=== PATIENT | male | born 1935 | race Caucasian/White ===

== ENCOUNTER 2022-07-17 10:30 | Inpatient (IN) | payer OTHER, MEDICARE ==
[~2022-07-17] VITALS: Ht 177.8 cm; Wt 78.9 kg
[2022-07-17] VITALS (10 sets, daily range): BP systolic 93–119
--- NOTE | 2022-07-17 10:30 | NUR ---
BROUGHT IN BY [facility], PLACED IN BED #1 AND TRIAGED. REPORT GIVEN TO CHRIS
--- NOTE | 2022-07-17 10:36 | NUR ---
ER at bedside examining patient.
--- NOTE | 2022-07-17 10:37 | NUR ---
pPt BIBA from assisted living C/O fast HR [id number] upon arrival Pt AOX4 VSS Verbally responsive Able to make needs known Pt HR converted to Sinus Rythym upon placement to bed Will continue to monitor
[2022-07-17] MEDS ORDERED: AMIODARONE HCL 150 MG/3ML VIAL IVP ONE (10:45)
[2022-07-17] MEDS ORDERED: PARO-41 PO (10:47)
[2022-07-17] MEDS ORDERED: ALEN10TA25 PO (10:47)
[2022-07-17] MEDS ORDERED: ASPI-1155 PO (10:47)
[2022-07-17] MEDS ORDERED: ALPR0.25 PO (10:47)
[2022-07-17] MEDS ORDERED: LEVO5TAB13 PO (10:47)
[2022-07-17] MEDS ORDERED: CA/D1TAB7 PO (10:47)
[2022-07-17] MEDS ORDERED: LIP10 PO (10:47)
[2022-07-17] MEDS ORDERED: CARV3.1246 PO (10:47)
[2022-07-17] MEDS ORDERED: MULT-1164 PO (10:47)
[2022-07-17] MEDS ORDERED: DOCU250C14 PO (10:47)
--- NOTE | 2022-07-17 10:47 | NUR ---
Medication reconciliation completed with information provided by [facility]. Any prior medication reconciliation on file was reviewed and corrected.
[2022-07-17 10:58] LABS: BASOPHILS # (AUTO) 0.1 K/uL (0.0-0.2); BASOPHILS % (AUTO) 0.6 % (0.0-2.0); EOSINOPHILS # (AUTO) 0.1 K/uL (0.0-0.4); EOSINOPHILS % (AUTO) 0.4 % (0.0-4.0); HEMATOCRIT 40.2 % (36-54); LYMPHOCYTES # (AUTO) 1.8 K/uL (1.0-5.5); LYMPHOCYTES % (AUTO) 12.7 % (20.5-51.5); MEAN CORPUSCULAR HEMOGLOBIN 30 pg (27-31); MEAN CORPUSCULAR HGB CONC 32 % (32-36); MEAN CORPUSCULAR VOLUME 93 fL (79.0-98.0); MONOCYTES # (AUTO) 1.5 K/uL (0.0-1.0); MONOCYTES % (AUTO) 10.5 % (1.7-9.3); NEUTROPHILS # (AUTO) 10.8 K/uL (1.8-7.7); NEUTROPHILS % (AUTO) 75.8 % (40.0-70.0); PLATELET COUNT (AUTO) 177 K/uL (130-430); RED CELL DISTRIBUTION WIDTH 14.5 % (9.0-15.0); WHITE BLOOD COUNT (AUTO) 14.2 K/uL (4.8-10.8)
[2022-07-17] MEDS ORDERED: MORPHINE 4 MG INJ. 4 MG/ML VIAL IVP ONE (11:00)
--- NOTE | 2022-07-17 11:24 | NUR ---
HR @222 BP @74/41 notified with order to prepare pt for cardioversion and amiodarone admin Meds given administered 2 rounds of shocks HR @88 @ this time
[2022-07-17 11:29] LABS: INR 1.2 (0.80-1.20); PROTHROMBIN TIME 12.1 SECS (9.5-12.5)
--- NOTE | 2022-07-17 11:32 | NUR ---
pt placed on 4L O2 NC per MD
[2022-07-17 11:35] LABS: ANION GAP 9 (5-15); CALCIUM 8.4 mg/dL (8.4-11.0); CHLORIDE 106 mmol/L (98-107); CREATININE 1.49 mg/dL (0.55-1.30); GLUCOSE 147 mg/dL (70-99); UREA NITROGEN, BLOOD 25 mg/dL (8-21)
[2022-07-17 11:43] LABS: ALANINE AMINOTRANSFERASE 210 U/L (12-78); ALBUMIN 3.2 g/dL (3.4-4.8); ASPARTATE AMINOTRANSFERASE 32 U/L (10-37); TOTAL BILIRUBIN 1.4 mg/dL (0.0-1.0)
--- NOTE | 2022-07-17 11:50 | NUR ---
Edilia from lab called for critical Troponin 662 MD Bai made aware
--- NOTE | 2022-07-17 11:52 | NUR ---
Admit bed requested Patient will be admitted to care of Admitted to unit. Tele Diagnosis Cardiac Arrhythmia Inpatient (Yes or No) Yes Observation (Yes or No) No Orientation concerns or request close to nursing station (Yes or No) No Covid Status Pending On vent or bipap No Isolation requirements No Needs a sitter No From Home (Yes or if No enter name of facility) No Requires Dialysis (Yes or No) No Med Rec Completed (Yes of No) Yes
--- NOTE | 2022-07-17 12:10 | NUR ---
COVID and MRSA specimens colected
[2022-07-17] MEDS: NACL 0.9% 1,000 ML IV SCH (12:31)
[2022-07-17] MEDS ORDERED: MAGNESIUM SULFATE 50 ML IV PRN (13:30)
[2022-07-17] MEDS ORDERED: ACETAMINOPHEN 325 MG TABLET PO PRN ×2 (13:30→14:00)
[2022-07-17] MEDS ORDERED: ONDANSETRON HCL 4 MG/2 ML VIAL IVP PRN (13:30)
[2022-07-17] MEDS ORDERED: MORPHINE 2 MG/ML INJ. SYRINGE IVP PRN (13:30)
[2022-07-17] MEDS ORDERED: MUPIROCIN 2% TOPICAL OINTMENT 22 GM NS PRN (13:30)
[2022-07-17] MEDS ORDERED: DOCUSATE SODIUM 100 MG CAPSULE PO PRN (13:30)
[2022-07-17] MEDS ORDERED: POTASSIUM CHLORIDE 20 MEQ TAB.PRT.SR PO PRN (13:30)
[2022-07-17] MEDS ORDERED: NALOXONE HCL 0.4 MG/ML AMP (NARCAN) IVP PRN ×2 (13:30)
--- NOTE | 2022-07-17 14:21 | NUR ---
Dr Kent notified of elevated troponin Per MD, notify Dr. Damon. Hot Room Attendant Dr. Damon notified
--- NOTE | 2022-07-17 14:22 | NUR ---
MD BURGOS PAGED FOR MD RADFORD
--- NOTE | 2022-07-17 14:27 | NUR ---
Per MD, admit pt to ICU and start amiodarine per protocol
[2022-07-17] MEDS ORDERED: AMIODARONE HCL 450 MG in D5W 241 ML IV SCH (14:30)
[2022-07-17] MEDS ORDERED: AMIODARONE HCL 450 MG/9 ML VIAL IV ONE ×2 (14:52→23:57)
--- NOTE | 2022-07-17 15:10 | NUR ---
Amidarone drip started per MD's order 33.3ml/hr @1346
--- NOTE | 2022-07-17 15:19 | NUR ---
Gave report to Pinky espinal continous of care AOX4 VSS Verbally responsive Able to make needs known
[2022-07-17 15:26] LABS: THYROID STIMULATING HORMONE 4.23 uIu/mL (0.36-3.74)
--- NOTE | 2022-07-17 15:58 | NUR ---
Patient will be admitted to care of icu. Admitted to ICU unit. Will go to room ICU 5. Complete and up to date summary report printed. SBAR report to be given at bedside with opportunity for questions.
--- NOTE | 2022-07-17 15:58 | NUR ---
FAMILY NOTIFIED OF PTS MOVE TO ICU, PHONE NUMBER GIVEN AND ALL QUESTIONS ANSWERED.
--- NOTE | 2022-07-17 16:15 | NUR ---
RN NOTES ADMITTED FROM ER, CAME IN FOR CARDIAC ARRYTHMIA. ADMISSION CARE DONE, PATIENT AWAKE AND ALERT, NOT IN ACUTE DISTRESS, O2 AT 4L/MIN VIA NC, SPO2 GOOD. SINUS TACHYCARDIA ON THE MONITOR. INITIAL VITAL SIGN CHECKED AND RECORDED. WITH AMIODARONE DRIP GOING ON AT 1MG/MIN. PATIENT REPOSITIONED FOR COMFORT.
--- NOTE | 2022-07-17 18:00 | NUR ---
RN NOTES FAMILY HERE TO SEE PATIENT, UPDATED ON PATIENT PRESENT CONDITION.
--- NOTE | 2022-07-17 20:00 | NUR ---
RECEIVED AWAKE, ALERT, FOLLOWS SIMPLE COMMANDS, VERBALLY RESPONSIVE. ON 4LPM O2 PER NC, SATURATION WDL. NO SOB NOTED. MAID HOUSEKEEPER SHOWNNST, DENIES CHEST PAIN. AMNIODARONE DRIP IS INFUSING ON THE LEFT WRIST , GA # 20 AT 1 MG/MIN. NS IS ALSO INFUSING AT 80 ML/HR. NO EDEMA NOTED. ABDOMEN SOFT AND NON-DISTENDED. SKIN INTACT.
[2022-07-17] MEDS: CARVEDILOL 3.125 MG TABLET (COREG) PO SCH (20:32)
[2022-07-17] MEDS ORDERED: ATORVASTATIN 10 MG TABLET PO SCH (21:00)
[2022-07-17] MEDS: HEPARIN SODIUM,PORCINE 5,000 UNITS/ML VIAL SUBCUT SCH (21:00)
[2022-07-17] MEDS: ALPRAZolam 0.25 MG TABLET PO SCH (21:00)
[2022-07-17] MEDS ORDERED: METOPROLOL SUCCINATE 25 MG TAB.SR.24H (TOPROL XL) PO ONE (23:09)
[2022-07-17] MEDS: METOPROLOL SUCCINATE 25 MG TAB.SR.24H (TOPROL XL) PO SCH (23:11)
[2022-07-18] VITALS (24 sets, daily range): BP systolic 93–183
[2022-07-18] MEDS: LORazepam 2 MG/ML VIAL IVP PRN ×2 (00:19→14:19)
--- NOTE | 2022-07-18 00:20 | NUR ---
PATIENT IS RESTLESS, PULLING LEADS OFF AND NASAL CANNULA. ATIVAN 1 MG IVP GIVEN. WILL CONTINUE TO MONITOR.
[2022-07-18] MEDS: NACL 0.9% 1,000 ML IV SCH ×3 (00:45→18:24)
[2022-07-18 06:52] LABS: BASOPHILS % (AUTO) 0.4 % (0.0-2.0); EOSINOPHILS # (AUTO) 0.1 K/uL (0.0-0.4); EOSINOPHILS % (AUTO) 0.6 % (0.0-4.0); HEMATOCRIT 35.6 % (36-54); HEMOGLOBIN 11.8 g/dL (14.0-18.0); LYMPHOCYTES # (AUTO) 1.2 K/uL (1.0-5.5); LYMPHOCYTES % (AUTO) 9.5 % (20.5-51.5); MEAN CORPUSCULAR HEMOGLOBIN 31 pg (27-31); MEAN CORPUSCULAR HGB CONC 33 % (32-36); MEAN CORPUSCULAR VOLUME 94 fL (79.0-98.0); MONOCYTES # (AUTO) 1.2 K/uL (0.0-1.0); MONOCYTES % (AUTO) 9.5 % (1.7-9.3); NEUTROPHILS # (AUTO) 10.1 K/uL (1.8-7.7); PLATELET COUNT (AUTO) 137 K/uL (130-430); RED BLOOD CELL COUNT(AUTO) 3.81 MIL/uL (4.2-6.2); RED CELL DISTRIBUTION WIDTH 14.4 % (9.0-15.0); WHITE BLOOD COUNT (AUTO) 12.6 K/uL (4.8-10.8)
[2022-07-18 07:09] LABS: ANION GAP 6 (5-15); CALCIUM 8.2 mg/dL (8.4-11.0); CHLORIDE 106 mmol/L (98-107); CREATININE 1.34 mg/dL (0.55-1.30); GLUCOSE 100 mg/dL (70-99); UREA NITROGEN, BLOOD 27 mg/dL (8-21)
--- NOTE | 2022-07-18 07:15 | NUR ---
Opening notes: Received report from endorsing film processing shift supervisor SPARKLE Sawant for continuity of care, pt lying in bed with ivf left wrist 20g of NS at 80ml/hr. pt on Amiodorin drip @ 0.5mg/min. Pt on 2l nasal cannula saturating at 97%, pt temp 97.5F, no sign of acute distress noted at this time will continue to monitor.
[2022-07-18] MEDS: ASPIRIN 81 MG TAB.CHEW PO SCH (09:01)
[2022-07-18] MEDS: PARoxetine HCL 20 MG TABLET PO SCH (09:01)
[2022-07-18] MEDS: CARVEDILOL 3.125 MG TABLET (COREG) PO SCH (09:05)
[2022-07-18] MEDS: HEPARIN SODIUM,PORCINE 5,000 UNITS/ML VIAL SUBCUT SCH ×2 (09:07→19:44)
--- NOTE | 2022-07-18 09:30 | NUR ---
Informed Vivienne of critical lab value of troponin 2174.
--- NOTE | 2022-07-18 09:41 | NUR ---
provided oral care, skin care, and bedside care rendered.
[2022-07-18] MEDS ORDERED: HEPARIN 25,000 UNITS/D5W 250ML 250 ML IV PRN (09:45)
[2022-07-18] MEDS ORDERED: ATORVASTATIN 20 MG TABLET PO ONE (10:00)
[2022-07-18] MEDS ORDERED: METOPROLOL SUCCINATE 50 MG TAB.SR.24H (TOPROL XL) PO ONE (10:00)
--- NOTE | 2022-07-18 11:33 | NUR ---
urine specimen is collected for urinalysis profile, sent to lab at 11:33.
[2022-07-18] MEDS ORDERED: ISOSORBIDE MONONITRATE 30 MG TAB.ER.24H PO ONE (12:00)
[2022-07-18 12:05] LABS: BILIRUBIN,URINE 1+ (NEGATIVE); BLOOD, URINE NEGATIVE (NEGATIVE); CLARITY/URINE CLEAR (CLEAR); COLOR,URINE YELLOW (YELLOW); GLUCOSE,URINE NEGATIVE (NEGATIVE); KETONES,URINE NEGATIVE (NEGATIVE); LEUKOCYTE ESTERASE ,URINE NEGATIVE (NEGATIVE); NITRITE, URINE POSITIVE (NEGATIVE); PROTEIN URINE TRACE (NEGATIVE); UROBILINOGEN,URINE 0.2 (0.2-1.0)
[2022-07-18 12:41] LABS: BACTERIA,URINE FEW /HPF (None Seen); MUCUS,URINE 1+ /LPF (None Seen); RBC,URINE 0-3 /HPF (0-3); WBC,URINE 0-3 /HPF (0-3)
--- NOTE | 2022-07-18 14:19 | NUR ---
pt becoming agitated, trying to pull his iv, removing his bp cuff, trying to take his gown, and the electro leads from his chest. pt was giving 1mg IVP.
--- NOTE | 2022-07-18 15:15 | NUR ---
Amiodorone stopped at 1515, Vivienne FINN at bed side order.
[2022-07-18] MEDS ORDERED: FUROSEMIDE 20 MG/2 ML VIAL IVP ONE (15:30)
--- NOTE | 2022-07-18 18:03 | NUR ---
ST EVALUATION COMPLETED. ST TX NOT INDICATED AT THIS TIME. RECOMMEND PO DIET OF PUREE/THIN LIQUID. 1:1 FEEDER AND FULL ASPIRATION PRECAUTIONS.
--- NOTE | 2022-07-18 19:30 | NUR ---
RECEIVED PATIENT AWAKE, NEEDS DETAILED EXPLANATIONS FOR THE PATIENT TO UNDERSTAND. FAMILY ARE HERE VISITING AND UPDATED. PATIENT HAS RESTRAINTS ON, EXPLAINED TO FAMILY THE REASON OF RESTRAINTS APPLICATION. ON 4L O2 PER NC, SATURATION WDL. FORGING DIE FINISHER IS SHOWING NSR, DENIES CHEST PAIN. BP WNL. IVF OF NS IS INFUSING AT 80 ML/HR. HEPARIN DRIP AT 42,000 UNITS/HR. WILL MONITOR PTT ORDERED AND WILL TITRATE ACCORDINGLY. PATIENT IS AFEBRILE AND INCONTINENT .
[2022-07-18] MEDS: ALPRAZolam 0.25 MG TABLET PO SCH (21:02)
[2022-07-18] MEDS: ZOLPIDEM TARTRATE 5 MG TABLET PO PRN (21:03)
[2022-07-18] MEDS: METOPROLOL SUCCINATE 25 MG TAB.SR.24H (TOPROL XL) PO SCH (23:00)
[2022-07-18] MEDS: MORPHINE 2 MG/ML INJ. SYRINGE IVP PRN (23:22)
--- NOTE | 2022-07-18 23:28 | NUR ---
LABORATORY CALLED, SAID THERE IS NO COAGULATION RESULT ON THE PTT READING, NO NUMERIC RESULT. REQUESTING THEM TO REDRAW BECAUSE PATIENT IS ON HEPARIN DRIP.
[2022-07-19] VITALS (21 sets, daily range): BP systolic 105–170
--- NOTE | 2022-07-19 | NUR ---
SPOKE WITH THE LAB, INFORMED THEM TOO REDRAW PTT AT 0100AM. HEPARIN DRIP TURNED OFF RIGHT NOWPER CHARGE NURSE. WILL WAIT WHEN PTT IS OBTAINED.
--- NOTE | 2022-07-19 02:21 | NUR ---
PTT RESULT IS NOT AVAILABLE, NO COAGULATION NOR NUMERIC NUMBER RESULT. CHARGE NURSE RECOMMENDING FOR A REDRAW, NOTIFIED LAB. HEPARIN REMAINED OFF .
[2022-07-19] MEDS: LORazepam 2 MG/ML VIAL IVP PRN (02:30)
[2022-07-19] MEDS: MORPHINE 2 MG/ML INJ. SYRINGE IVP PRN (03:36)
--- NOTE | 2022-07-19 04:40 | NUR ---
PTT IS STILL NOT RESULTED. LAB MADE A NOTE THAT THERE IS STILL NO COAGULATION FROM THE REDRAWS, NOTIFIED DR. Anahi SALCEDO, ORDERED TO HOLD THE HEPARIN AND SWITCH TO LOVENOX 80MG SQ BID.
[2022-07-19 06:47] LABS: BASOPHILS % (AUTO) 0.3 % (0.0-2.0); EOSINOPHILS # (AUTO) 0.1 K/uL (0.0-0.4); EOSINOPHILS % (AUTO) 0.6 % (0.0-4.0); HEMATOCRIT 33.5 % (36-54); HEMOGLOBIN 11.3 g/dL (14.0-18.0); LYMPHOCYTES # (AUTO) 1.2 K/uL (1.0-5.5); LYMPHOCYTES % (AUTO) 11.2 % (20.5-51.5); MEAN CORPUSCULAR HEMOGLOBIN 31 pg (27-31); MEAN CORPUSCULAR HGB CONC 34 % (32-36); MEAN CORPUSCULAR VOLUME 92 fL (79.0-98.0); MONOCYTES % (AUTO) 9.4 % (1.7-9.3); NEUTROPHILS # (AUTO) 8.1 K/uL (1.8-7.7); NEUTROPHILS % (AUTO) 78.5 % (40.0-70.0); PLATELET COUNT (AUTO) 119 K/uL (130-430); RED BLOOD CELL COUNT(AUTO) 3.64 MIL/uL (4.2-6.2); RED CELL DISTRIBUTION WIDTH 14.1 % (9.0-15.0)
[2022-07-19 06:58] LABS: ANION GAP 12 (5-15); CALCIUM 7.4 mg/dL (8.4-11.0); CHLORIDE 107 mmol/L (98-107); CREATININE 1.16 mg/dL (0.55-1.30); GLUCOSE 94 mg/dL (70-99); UREA NITROGEN, BLOOD 30 mg/dL (8-21)
--- NOTE | 2022-07-19 07:44 | NUR ---
MEDS CALLED PHARMACY AND SPOKE TO [facility]. MADE HER AWARE THAT PT IS OFF THE HEPARIN DRIP. PTT ABOVE 150. PLATELET COUNT PENDING, WILL WAIT FOR THE RESULT.
[2022-07-19 07:52] LABS: WHITE BLOOD COUNT (AUTO) 10.3 K/uL (4.8-10.8)
--- NOTE | 2022-07-19 08:00 | NUR ---
AM ASSESSMENT APPROACHED PT, HIS EYES CLOSED, REPLIED SHORT WORDS TO STAFF, ON IVF NS AT 80 ML PER HR, IV SITE CLEAR AND INTACT, ABDOMEN SOFT NON DISTENDED, REPOSITIONED IN BED, CONTINUE TO MONITOR.
[2022-07-19] MEDS: ASPIRIN 81 MG TAB.CHEW PO SCH (09:00)
[2022-07-19] MEDS: ATORVASTATIN 20 MG TABLET PO SCH (09:00)
[2022-07-19] MEDS: PARoxetine HCL 20 MG TABLET PO SCH (09:00)
[2022-07-19] MEDS: ENOXAPARIN SODIUM 80 MG/0.8 ML SYRINGE SUBCUT SCH ×3 (09:00→20:23)
[2022-07-19] MEDS: METOPROLOL SUCCINATE 25 MG TAB.SR.24H (TOPROL XL) PO SCH (09:00)
[2022-07-19] MEDS: METOPROLOL SUCCINATE 50 MG TAB.SR.24H (TOPROL XL) PO SCH (09:00)
--- NOTE | 2022-07-19 09:59 | NUR ---
MEDS HELD LOVENOX SQ, PTT ABOVE 150, PLATELET COUNT 119.
--- NOTE | 2022-07-19 11:00 | NUR ---
LOC PT REMAINS DROWSY, TURNED TO HIS SIDE, WILL CONTINUE TO MONITOR.
--- NOTE | 2022-07-19 11:30 | NUR ---
MD PT'S MARY JO AND THEIR SON AT BEDSIDE, DR Bindu SALCEDO STEPPED IN AND EXAMINED THE PATIENT. THE FAMILY RAISED QUESTIONS, PLAN OF CARE AND MD ANSWERED.
--- NOTE | 2022-07-19 19:25 | NUR ---
PM SHIFT ASSESSMENT Patient is awake but very confused. Patient is on room air. SR on monitor. Skin warm and intact. IVF infusing. Bilateral wrist restraints in place, no skin issues noted. Safety precautions in place, call light within reach. Will continue to monitor.
[2022-07-19] MEDS: NACL 0.9% 1,000 ML IV SCH (20:10)
--- NOTE | 2022-07-19 21:15 | NUR ---
Patient is extremely confused, trying to pull lines and get out of bed. Patient reoriented but unable to follow simple commands. Will attempt to reorient again later. Safety precautions in place.
[2022-07-20] VITALS (24 sets, daily range): BP systolic 90–166
[2022-07-20] MEDS: MORPHINE 2 MG/ML INJ. SYRINGE IVP PRN (03:23)
--- NOTE | 2022-07-20 07:15 | NUR ---
ENDORSEMENT Patient care endorsed to tray VILLAGRAN. All needs met.
[2022-07-20 07:40] LABS: INR 1.2 (0.80-1.20); PROTHROMBIN TIME 12.2 SECS (9.5-12.5)
[2022-07-20 08:03] LABS: ANION GAP 9 (5-15); CALCIUM 7.9 mg/dL (8.4-11.0); CHLORIDE 108 mmol/L (98-107); CREATININE 0.79 mg/dL (0.55-1.30); GLUCOSE 78 mg/dL (70-99); UREA NITROGEN, BLOOD 24 mg/dL (8-21)
[2022-07-20 08:17] LABS: BASOPHILS % (AUTO) 0.3 % (0.0-2.0); EOSINOPHILS % (AUTO) 0.4 % (0.0-4.0); HEMATOCRIT 34.1 % (36-54); HEMOGLOBIN 11.4 g/dL (14.0-18.0); LYMPHOCYTES # (AUTO) 0.7 K/uL (1.0-5.5); LYMPHOCYTES % (AUTO) 8.7 % (20.5-51.5); MEAN CORPUSCULAR HEMOGLOBIN 31 pg (27-31); MEAN CORPUSCULAR HGB CONC 33 % (32-36); MEAN CORPUSCULAR VOLUME 92 fL (79.0-98.0); MONOCYTES # (AUTO) 0.8 K/uL (0.0-1.0); MONOCYTES % (AUTO) 8.8 % (1.7-9.3); NEUTROPHILS # (AUTO) 7.1 K/uL (1.8-7.7); NEUTROPHILS % (AUTO) 81.8 % (40.0-70.0); PLATELET COUNT (AUTO) 119 K/uL (130-430); RED BLOOD CELL COUNT(AUTO) 3.69 MIL/uL (4.2-6.2); RED CELL DISTRIBUTION WIDTH 14.4 % (9.0-15.0); WHITE BLOOD COUNT (AUTO) 8.6 K/uL (4.8-10.8)
[2022-07-20] MEDS: ENOXAPARIN SODIUM 80 MG/0.8 ML SYRINGE SUBCUT SCH ×3 (09:00→21:30)
[2022-07-20] MEDS: PARoxetine HCL 20 MG TABLET PO SCH ×2 (09:00→10:54)
[2022-07-20] MEDS: ATORVASTATIN 20 MG TABLET PO SCH ×2 (09:00→10:55)
[2022-07-20] MEDS: METOPROLOL SUCCINATE 50 MG TAB.SR.24H (TOPROL XL) PO SCH ×2 (09:00→14:30)
[2022-07-20] MEDS: ASPIRIN 81 MG TAB.CHEW PO SCH ×2 (09:00→10:53)
--- NOTE | 2022-07-20 10:25 | NUR ---
PRINCIPAL DEVELOPER DR Bindu SALCEDO WAS PAGED TO NOTIFY ABOUT V TACH EPISODE. HE CAME IN AND SAW THE EKG TRACE. HE MARIA R TO SEE THE PATIENT. HE ALSO MET THE FAMILY, AND SON.
[2022-07-20] MEDS: NACL 0.9% 1,000 ML IV SCH ×2 (11:06→21:31)
--- NOTE | 2022-07-20 14:10 | NUR ---
ARRHYTHMIA PT TALKING, CONFUSED CONVERSATION, CARDIAC RHYTHM SVT, HEART RATE 147, BREATHING REGULAR, SET UP EKG MACHINE.
--- NOTE | 2022-07-20 14:12 | NUR ---
Orders left by Dr. Damon and bedside RN made aware.
--- NOTE | 2022-07-20 14:12 | NUR ---
SVT noted on the monitor, rate 140-150. 12 lead EKG done and shows wide complex tachycardia. Call out to Dr. Damon.
[2022-07-20] MEDS ORDERED: METOPROLOL SUCCINATE 50 MG TAB.SR.24H (TOPROL XL) PO ONE (14:30)
--- NOTE | 2022-07-20 14:31 | NUR ---
MEDS 100 MG TOPROL XL GIVEN ORDERED BY Anahi LORENZO
--- NOTE | 2022-07-20 16:45 | NUR ---
MIDLINE NEW IV ACCESS IN THE LEFT UPPER ARM. DRESSING INTACT, BLOOD OOZING TO THE SIDE NOTED. PICC NURSE CAME BACK AND RE DRESSED, APPLIED PRESSURE DRESSING TO SITE.
--- NOTE | 2022-07-20 19:30 | NUR ---
PM SHIFT ASSESSMENT Patient is awake but very confused. Patient is NC, RR even and unlabored. SR on monitor. Skin warm and intact. IVF infusing. Bilateral wrist restraints in place, no skin issues noted. Safety precautions in place, call light within reach. Will continue to monitor.
[2022-07-20] MEDS: ZOLPIDEM TARTRATE 5 MG TABLET PO PRN (21:30)
[2022-07-21] VITALS (24 sets, daily range): BP systolic 127–202
[2022-07-21] MEDS: NACL 0.9% 1,000 ML IV SCH (03:37)
[2022-07-21 07:04] LABS: BASOPHILS # (AUTO) 0.1 K/uL (0.0-0.2); BASOPHILS % (AUTO) 0.9 % (0.0-2.0); EOSINOPHILS # (AUTO) 0.1 K/uL (0.0-0.4); HEMATOCRIT 32.9 % (36-54); HEMOGLOBIN 11.4 g/dL (14.0-18.0); LYMPHOCYTES # (AUTO) 1.2 K/uL (1.0-5.5); LYMPHOCYTES % (AUTO) 13.5 % (20.5-51.5); MEAN CORPUSCULAR HEMOGLOBIN 32 pg (27-31); MEAN CORPUSCULAR HGB CONC 35 % (32-36); MEAN CORPUSCULAR VOLUME 92 fL (79.0-98.0); MONOCYTES # (AUTO) 0.9 K/uL (0.0-1.0); MONOCYTES % (AUTO) 10.6 % (1.7-9.3); NEUTROPHILS # (AUTO) 6.4 K/uL (1.8-7.7); PLATELET COUNT (AUTO) 155 K/uL (130-430); RED BLOOD CELL COUNT(AUTO) 3.58 MIL/uL (4.2-6.2); RED CELL DISTRIBUTION WIDTH 14.3 % (9.0-15.0); WHITE BLOOD COUNT (AUTO) 8.7 K/uL (4.8-10.8)
--- NOTE | 2022-07-21 07:06 | NUR ---
ENDORSEMENT PATIENT CARE ENDORSED TO SANDRINE VILLAGRAN.
[2022-07-21 07:15] LABS: ANION GAP 7 (5-15); CALCIUM 7.5 mg/dL (8.4-11.0); CHLORIDE 109 mmol/L (98-107); CREATININE 0.94 mg/dL (0.55-1.30); GLUCOSE 90 mg/dL (70-99); UREA NITROGEN, BLOOD 19 mg/dL (8-21)
--- NOTE | 2022-07-21 07:15 | NUR ---
Opening Received report on pt. Pt awake, confused, in no signs of pain or distress on 1L O2 nasal cannula. Pt with bilateral soft wrist restraints for safety and unable to follow instructions. Pt receiving IVF to midline. Pt is incontinent.
[2022-07-21] MEDS: ASPIRIN 81 MG TAB.CHEW PO SCH (08:54)
[2022-07-21] MEDS: PARoxetine HCL 20 MG TABLET PO SCH (08:54)
[2022-07-21] MEDS: METOPROLOL SUCCINATE 50 MG TAB.SR.24H (TOPROL XL) PO SCH (08:54)
[2022-07-21] MEDS: ENOXAPARIN SODIUM 80 MG/0.8 ML SYRINGE SUBCUT SCH ×2 (08:55→21:08)
[2022-07-21] MEDS: ATORVASTATIN 20 MG TABLET PO SCH (08:55)
[2022-07-21] MEDS ORDERED: SODIUM ZIRCONIUM CYCLOSILICATE 10 GM POWD.PACK PO ONE (09:00)
--- NOTE | 2022-07-21 09:00 | NUR ---
Pt able to tolerate eating breakfast, had 50% of meal. Tolerated well.
[2022-07-21] MEDS: hydrALAZINE HCL 20 MG/ML VIAL IVP PRN (09:02)
[2022-07-21] MEDS ORDERED: SACUBITRIL/VALSARTAN 24 MG-26 MG 1 TABLET PO ONE (09:45)
--- NOTE | 2022-07-21 11:30 | NUR ---
Transfer of care Pt in no signs of pain or distress, remains on 1L O2 via nasal cannula. Bilateral soft wrist restraints in place for safety. Endorsed plan of care to Annmarie VILLAGRAN.
--- NOTE | 2022-07-21 19:15 | NUR ---
Opening notes Received report from endorsing morning shift RN Annmarie for continuity of care. Patient is lying in bed confused. Patient's vital signs blood pressure 143/77, heart rate 66, respirations 15, SPO2 99% on 1 L NC. Bilateral soft restraints is in place. Bed is locked and in lowest position, call light button within reach, fall and safety precautions is in place.
[2022-07-21] MEDS: SACUBITRIL/VALSARTAN 24 MG-26 MG 1 TABLET PO SCH (21:08)
[2022-07-22] VITALS (24 sets, daily range): BP systolic 101–187
[2022-07-22] MEDS: ZOLPIDEM TARTRATE 5 MG TABLET PO PRN ×2 (02:32→20:29)
[2022-07-22] MEDS: hydrALAZINE HCL 20 MG/ML VIAL IVP PRN ×2 (02:32→16:07)
[2022-07-22 06:55] LABS: BASOPHILS # (AUTO) 0.1 K/uL (0.0-0.2); BASOPHILS % (AUTO) 0.7 % (0.0-2.0); EOSINOPHILS % (AUTO) 0.6 % (0.0-4.0); HEMOGLOBIN 11.7 g/dL (14.0-18.0); LYMPHOCYTES # (AUTO) 0.8 K/uL (1.0-5.5); LYMPHOCYTES % (AUTO) 10.3 % (20.5-51.5); MEAN CORPUSCULAR HEMOGLOBIN 31 pg (27-31); MEAN CORPUSCULAR HGB CONC 34 % (32-36); MEAN CORPUSCULAR VOLUME 91 fL (79.0-98.0); MONOCYTES # (AUTO) 0.8 K/uL (0.0-1.0); MONOCYTES % (AUTO) 10.5 % (1.7-9.3); NEUTROPHILS # (AUTO) 6.2 K/uL (1.8-7.7); NEUTROPHILS % (AUTO) 77.9 % (40.0-70.0); PLATELET COUNT (AUTO) 139 K/uL (130-430); RED BLOOD CELL COUNT(AUTO) 3.76 MIL/uL (4.2-6.2); RED CELL DISTRIBUTION WIDTH 14.2 % (9.0-15.0)
[2022-07-22 07:06] LABS: ANION GAP 8 (5-15); CALCIUM 7.9 mg/dL (8.4-11.0); CHLORIDE 106 mmol/L (98-107); CREATININE 0.67 mg/dL (0.55-1.30); GLUCOSE 104 mg/dL (70-99); UREA NITROGEN, BLOOD 17 mg/dL (8-21)
--- NOTE | 2022-07-22 09:00 | NUR ---
NIKKO HENDERSON AT BEDSIDE, ASSESSED PATIENT, STATED PATIENT IS CLEAR FOR TELE STATUS. NO NEW ORDERS AT THIS TIME. PATIENT CONFUSED BUT KNOWS NAME. NO S/S OF DISTRESS. NOW ON ROOM AIR O2 SAT >94%.
[2022-07-22] MEDS: ENOXAPARIN SODIUM 80 MG/0.8 ML SYRINGE SUBCUT SCH ×2 (09:05→20:29)
[2022-07-22] MEDS: PARoxetine HCL 20 MG TABLET PO SCH (09:06)
[2022-07-22] MEDS: ASPIRIN 81 MG TAB.CHEW PO SCH (09:06)
[2022-07-22] MEDS: ATORVASTATIN 20 MG TABLET PO SCH (09:06)
[2022-07-22] MEDS: METOPROLOL SUCCINATE 50 MG TAB.SR.24H (TOPROL XL) PO SCH (09:07)
[2022-07-22] MEDS: SACUBITRIL/VALSARTAN 24 MG-26 MG 1 TABLET PO SCH ×2 (09:07→20:29)
--- NOTE | 2022-07-22 13:00 | NUR ---
PATIENT HAD LARGE BOWEL MOVEMENT, PATIENT CLEANED, CHANGED MEPILEX ON SACRUM AND SKIN IS INTACT.
--- NOTE | 2022-07-22 15:00 | NUR ---
Wound Evaluation: Wound Consult ordered for Low Malki Score. Patient evaluated for a low Malik score of 12. Patient was awake, alert, and received in a Dexter Bed with an Isoflex FARHAT mattress. Patient needs to be turned in bed. Skin assessment: 1. Right Upper Extremity: Scattered ecchymosis, present on admission. 2. Left Upper Extremity: Small area of ecchymosis near antecubital area. 3. Left Lateral Trunk:. Large area of ecchymosis, present on admission Surgical site from failed central line. No odor, no drainage. Site has sutures. Recommend: No dressings needed. Continue to monitor sites every shift. Recommend reposition patient every 2 hours with pillow support. Elevate, off-load and float bilateral heels with pillows. Offload pressure areas with pillows for pressure re-distribution. Perform skin care and monitor skin integrity Q shift. Use moisture barrier cream on moisture susceptible areas QID and PRN for soiling. Initiate low air-loss therapy by attaching an air pump to the mattress.
--- NOTE | 2022-07-22 18:00 | NUR ---
PATIENT TELE ORDER ACTIVE BUT BED IS UNAVAILABLE AT THIS TIME, NO S/S OF DISTRESS.
--- NOTE | 2022-07-22 18:42 | NUR ---
Dietitian Recommendations * Continue CCHO, puree diet (includes ONS TID; provides 660 kcal, 30g PRO) * Encourage good PO intake, reduce distractions during meals * Recommend snacks between meals, computrition updated Please refer to nutrition assessment for details, thanks! CC, MPH, RDN
--- NOTE | 2022-07-22 19:00 | NUR ---
Opening notes Received report from endorsing morning shift Oneal for continuity of care. Patient is lying in bed with bilateral soft restraints on. Patient's vital signs blood pressure 164/68, heart rate 70, respirations 14, and SPO2 97% on room air. Bed is locked and in lowest position, call light button within reach, fall and safety precautions is in place.
[2022-07-23] VITALS (21 sets, daily range): BP systolic 114–172
[2022-07-23] MEDS: hydrALAZINE HCL 20 MG/ML VIAL IVP PRN (03:10)
[2022-07-23 06:24] LABS: BASOPHILS % (AUTO) 0.6 % (0.0-2.0); EOSINOPHILS # (AUTO) 0.1 K/uL (0.0-0.4); EOSINOPHILS % (AUTO) 0.9 % (0.0-4.0); HEMATOCRIT 34.7 % (36-54); HEMOGLOBIN 11.9 g/dL (14.0-18.0); LYMPHOCYTES # (AUTO) 1.1 K/uL (1.0-5.5); LYMPHOCYTES % (AUTO) 14.1 % (20.5-51.5); MEAN CORPUSCULAR HEMOGLOBIN 31 pg (27-31); MEAN CORPUSCULAR HGB CONC 34 % (32-36); MEAN CORPUSCULAR VOLUME 90 fL (79.0-98.0); MONOCYTES # (AUTO) 0.8 K/uL (0.0-1.0); MONOCYTES % (AUTO) 10.5 % (1.7-9.3); NEUTROPHILS # (AUTO) 5.6 K/uL (1.8-7.7); NEUTROPHILS % (AUTO) 73.9 % (40.0-70.0); PLATELET COUNT (AUTO) 153 K/uL (130-430); RED BLOOD CELL COUNT(AUTO) 3.85 MIL/uL (4.2-6.2); RED CELL DISTRIBUTION WIDTH 14.7 % (9.0-15.0); WHITE BLOOD COUNT (AUTO) 7.6 K/uL (4.8-10.8)
[2022-07-23 06:57] LABS: ANION GAP 9 (5-15); CALCIUM 7.6 mg/dL (8.4-11.0); CHLORIDE 106 mmol/L (98-107); CREATININE 0.81 mg/dL (0.55-1.30); GLUCOSE 100 mg/dL (70-99)
[2022-07-23 07:05] LABS: UREA NITROGEN, BLOOD 16 mg/dL (8-21)
--- NOTE | 2022-07-23 07:43 | NUR ---
patient in bed, no s/s of distress, tele status, confusion, dementia, left upper arm midline clean dry intact patent, incontinent bowel and bladder with clean linens at this time, skin intact, vitals stable, will continue to monitor.
[2022-07-23] MEDS: METOPROLOL SUCCINATE 50 MG TAB.SR.24H (TOPROL XL) PO SCH (08:43)
[2022-07-23] MEDS: ATORVASTATIN 20 MG TABLET PO SCH (08:43)
[2022-07-23] MEDS: ASPIRIN 81 MG TAB.CHEW PO SCH (08:43)
[2022-07-23] MEDS: PARoxetine HCL 20 MG TABLET PO SCH (08:43)
[2022-07-23] MEDS: SACUBITRIL/VALSARTAN 24 MG-26 MG 1 TABLET PO SCH ×2 (08:44→21:28)
[2022-07-23] MEDS: ENOXAPARIN SODIUM 80 MG/0.8 ML SYRINGE SUBCUT SCH (08:44)
--- NOTE | 2022-07-23 09:31 | NUR ---
spoke with Yaneli the health director of [facility]. provided update that the patient is tele status but there is no order for discharge at this time.
--- NOTE | 2022-07-23 10:50 | NUR ---
attempted to remove pt restraints, patient attempted to get out of bed repeatedly and was pulling at midline, notified dr kim, stated it is ok to keep restraints on.
[2022-07-23] MEDS ORDERED: amLODIPine BESYLATE 5 MG TABLET PO ONE (11:15)
[2022-07-23] MEDS: ISOSORBIDE MONONITRATE 30 MG TAB.ER.24H PO SCH (14:00)
--- NOTE | 2022-07-23 14:22 | NUR ---
patient at bedside, updated on patient status, asked if pt can be seen by physical therapist and if primary Dr can call with an update. call dr kim and she ordered PT and was provided daughter Denise's phone number [phone].
[2022-07-23] MEDS ORDERED: ISOSORBIDE MONONITRATE 30 MG TAB.ER.24H PO ONE (15:00)
--- NOTE | 2022-07-23 18:04 | NUR ---
PHYSICAL THERAPY ORDER RECEIVED. CASE DISCUSSED WITH RN WHO WILL SPEAK WITH FOOD SANITARIAN REGARDING SAFETY TO START GAIT TRAINING. (ISSUES ELEVATED TROPONIN, TACHYCARDIA, AND RUE THROMBUS). PLAN: FOLLOW UP TOMORROW.
--- NOTE | 2022-07-23 19:30 | NUR ---
Pt report received. Pt alert, responsive, confused, follows commands. Denies c/o pain or discomfort. MIR Midline patent and secure. Bilateral soft wrist restraints in placed. VSS, NAD.
--- NOTE | 2022-07-23 20:00 | NUR ---
Pt incontinent of urine. Pt cleaned, clean gown to pt, and fresh chucks and linens applied to bed. Pt denies c/o pain or discomfort, no needs verbalized. VSS, NAD.
[2022-07-24] VITALS (15 sets, daily range): BP systolic 131–184
[2022-07-24 06:50] LABS: ANION GAP 6 (5-15); CALCIUM 7.9 mg/dL (8.4-11.0); CHLORIDE 105 mmol/L (98-107); CREATININE 0.69 mg/dL (0.55-1.30); GLUCOSE 93 mg/dL (70-99); UREA NITROGEN, BLOOD 15 mg/dL (8-21)
[2022-07-24 06:54] LABS: BASOPHILS % (AUTO) 0.6 % (0.0-2.0); EOSINOPHILS # (AUTO) 0.1 K/uL (0.0-0.4); EOSINOPHILS % (AUTO) 1.6 % (0.0-4.0); HEMATOCRIT 33.4 % (36-54); HEMOGLOBIN 11.3 g/dL (14.0-18.0); LYMPHOCYTES % (AUTO) 14.8 % (20.5-51.5); MEAN CORPUSCULAR HEMOGLOBIN 31 pg (27-31); MEAN CORPUSCULAR HGB CONC 34 % (32-36); MEAN CORPUSCULAR VOLUME 92 fL (79.0-98.0); MONOCYTES # (AUTO) 0.8 K/uL (0.0-1.0); NEUTROPHILS # (AUTO) 4.7 K/uL (1.8-7.7); PLATELET COUNT (AUTO) 140 K/uL (130-430); RED BLOOD CELL COUNT(AUTO) 3.65 MIL/uL (4.2-6.2); RED CELL DISTRIBUTION WIDTH 14.9 % (9.0-15.0); WHITE BLOOD COUNT (AUTO) 6.6 K/uL (4.8-10.8)
--- NOTE | 2022-07-24 07:47 | NUR ---
Patient in bed, no s/s of distress, dementia, A/Ox1, 2L nasal canula, left upper arm midline, incontinent bowel and bladder, bilateral soft wrist restraints in place with active order, tele status, bed in lowest locked position, safety measures in place, call light within reach, bed alarm on.
[2022-07-24] MEDS: amLODIPine BESYLATE 5 MG TABLET PO SCH (09:28)
[2022-07-24] MEDS: ISOSORBIDE MONONITRATE 30 MG TAB.ER.24H PO SCH (09:29)
[2022-07-24] MEDS: ATORVASTATIN 20 MG TABLET PO SCH (09:29)
[2022-07-24] MEDS: METOPROLOL SUCCINATE 50 MG TAB.SR.24H (TOPROL XL) PO SCH (09:30)
[2022-07-24] MEDS: SACUBITRIL/VALSARTAN 24 MG-26 MG 1 TABLET PO SCH ×2 (09:30→21:10)
[2022-07-24] MEDS: CLOPIDOGREL BISULFATE 75 MG TABLET PO SCH (09:30)
[2022-07-24] MEDS: PARoxetine HCL 20 MG TABLET PO SCH (09:30)
--- NOTE | 2022-07-24 10:00 | NUR ---
Report given to SPARKLE Escoto to assume care of the patient.
--- NOTE | 2022-07-24 17:57 | NUR ---
Nutrition F/U Admitting Diagnosis: Cardiac Arrythmia Reviewed Pertinent Medical/Surgical Hx: Medical Record, Patient Medical History Comment: Per EMR: 86y male with PMHx CAD,CABG, HLD, anxiety, osteoporosis, depression, mild dementia who presented to [facility] c/o increased weakness and experienced a choking episode. Per MD, patient noted with mild PEM: Low albumin is not a nutritional indicator of protein-energy malnutrition, however pt does qualify for non-severe mild/moderate malnutrition in the context of chronic illness (dementia). Per speech therapy note: swallow evaluation completed 07/18, recommended Puree diet with Thin Liquids, 1:1 feeding assistance and full aspiration precautions. Per previous RD note: NFPE completed - Mild fat loss orbital, cheek, tricep areas; Mild muscle wasting zoroastrian, clavicle, and shoulder areas. Subjective Information: Nutrition Consult received 07/22/22 8575 d/t Malik 12. Bone Puller rounded to pt bedside, pt awake but seemed confused. Bone Puller noted that small bites of lunch tray consumed in room. ONS Ensure (provided w/ meals) missing from lunch tray, but was found 50% consumed on soiled meal cart w/ breakfast tray. Bone Puller noted breakfast tray was 0% consumed/untouched. Average PO intake 58% x 6 meals per EMR review. CBW 180# via bedscale -- wt flucutation could be d/t bilat edema in arms not previously noted in last visit. Per pt, no BM today. LBM 07/22 in EMR. Per ICU rounds, RN reported pt ate 100% of breakfast and lunch, then 0% of dinner yesterday. Current Diet Order/Nutrition Support; CCHO, Puree x 5 days Patient/Significant Other: Unable To Verbalize Education Provided: Not Indicated Pertinent Medications: Entresto, Toprol, Apresoline, Colace, Lipitor, K-Dur NEW Pertinent Labs (07/24): K 3.7 WNL, BG 93 WNL, Ca 7.9 L, Hgba1c 5.6 WNL, Trop 209*H - improving Anthropotmetrics: Height: 5'10" Weight: 174#/78.9kg Body Mass Index: 24.96 kg/m2 %IBW: 105 [place]/Adjusted Body Weight: 166#/75kg Weight Status: Appropriate Gastrointestinal Symptoms: None Last BM: Jul 22, 2022 Difficulty With: Swallowing Food Allergies: Unable to assess Usual Diet At Home: Unable to assess NEW Skin Integrity Comment: Malik Score 12: ecchymosis documented on L upper arm, lower abdomen, and R arm -- wound eval complette 07/22; BUE nonpitting edema per EMR 07/24 Current % PO: Fair (50-75%) Estimated Energy Expenditure (kcals/day) 3386-3591 (25-30 kcal/kg for GERIAT status, mild PEM) Estimated Protein Required (g/day) 80-95 (1-1.2 g/kg for GERIAT status, mild PEM) Estimated Fluid Required (l/day) 1.5 (1500mL fluid restriction per MD) Problem/Etiology/Signs/Symptoms * Moderate malnutrition r/t dementia, inability to feed self a/e/b mild muscle wasting, mild fat loss, mild edema, and PO intake <50% x 5 days (Ongoing) Expected Outcomes/Goals PO intake provides >85% estimated nutritional needs, weight maintenance/skin integrity, nutrition-related labs WNL, normal GI function w/BM q1-3 days Dietitian Recommendations * Continue CCHO, Puree diet (includes ONS TID, provides 660 kcal, 30g PRO) * Encourage good PO intake, reduce distractions during meals * Recommend snacks between meals, Computrition updated High Risk: F/U in 2-3days Follow Up By Jul 27, 2022 Co-Signed By: Margarette Chiu, MS, RD
--- NOTE | 2022-07-24 17:58 | NUR ---
Dietitian Recommendations * Continue CCHO, Puree diet (includes ONS TID, provides 660 kcal, 30g PRO) * Encourage good PO intake, reduce distractions during meals * Recommend snacks between meals, Computrition updated LP, MS, RD Please refer to Nutrition F/U for details.
--- NOTE | 2022-07-24 20:45 | NUR ---
Pt confused and climbing out of bed, throwing both feet over the side rails. He thinks its time to leave. "You guys have been real nice here, but I've got to go. Unite my hands". Pt figiting in bed and keeps putting legs over the side rail. REstraints remain in place to both hands. Bed in low position. [facility]iota care provided.
--- NOTE | 2022-07-24 22:00 | NUR ---
OPENING NOTE PT CONFUSED AOX1. PT HAS 2L OF O2 VIA N/C WITH STA'S @ 96%. PT ON OPERATOR CAVITY PUMP AND IS SR WITH HR OF 89. PT HAS LEFT U/A MIDLINE WHICH IS SALINE LOCK. BOTH PORTS FLUSHED AND PATENT. PT IS INCONTINENT OF BOTH BOWEL AND BLADDER. PT SKIN IS INTACT BUT PT HAS BRUISING ON BILAT UPPER ARMS AND RIGHT SIDE OF WAIST. PT IN 2 POINT BILAT SOFT WRIST RESTRAINTS. ALL SAFETY MEASURES IN PLACE WILL CONTINUE TO MONITOR
--- NOTE | 2022-07-24 22:05 | NUR ---
PT CLIMBING OUT OF BED PT HAS BILAT WRIST RESTRAINS BUT IS BALE TO THROW HIS LEGS BETWEEN THE BED SIDE RAIL AND ATTEMPT TO STAND UP. PT REQUIRES CLOSE MONITORING
--- NOTE | 2022-07-24 23:15 | NUR ---
BM PATIENT HAD LARGE BOWEL MOVEMENT, PATIENT CLEANED AND SKIN IS INTACT.
[2022-07-25] VITALS: BP_SYST 144
--- NOTE | 2022-07-25 | NUR ---
ROUNDS; -Pt is asleep in bed comfortably. No s/s any pain,sob,or any acute distress noted. Fall precaution in place. Bed alarmed, side rails x3, call light w/in reach. Cont to monitor pt. Addendum: 07/26/22 at 0002 by Jonas Cochran, SPARKLE VILLAGRAN CORRECTION-ENTRY WRONG DATE; NOT 07/25/22, IT'S 07/26/22 MIDNIGHT
--- NOTE | 2022-07-25 | NUR ---
PT ATTEMPT TO CLIMB OUT OF BED PT STILL PUTTING HIS LEGS OVER THE SIDE RAIL OF THE BED AND ATTEMPTING TO GET OUT OF BED. WILL MONITOR CLOSELY
--- NOTE | 2022-07-25 02:00 | NUR ---
PT CLIMBING OUT OF BED Pt more confused and climbing out of bed, throwing both feet over the side rails. He thinks its time to leave. "My is waiting on me". Pt fighting in bed and keeps putting legs over the side rail. Restraints remain in place to both hands. Bed in low position. [facility]iota care provided.
--- NOTE | 2022-07-25 03:00 | NUR ---
PT INCONTINENT OF URINE PT CLEANED AND EMILY CARE GIVEN, PT ATTEMPTING TO GET OUT OF THE BED DURING THE CHANGING
[2022-07-25 04:00] VITALS: BP_SYST 151
--- NOTE | 2022-07-25 04:00 | NUR ---
PT CLIMBING OUT OF BED PT CONTINUES TO REQUIRE MORE ATTENTION PT CONTINUES TO CLIMB OUT OF THE BED. PT REMAINS CONFUSED, AND DOESN'T BELIEVE HE IS IN THE HOSPITAL. RE-ORIENTATION ATTEMPTED WITH NO SUCCESS.
--- NOTE | 2022-07-25 06:00 | NUR ---
PT CLIMBING OUT OF THE BED PT CONTINUE TO CLIMB OUT OF THE BED THE ENTIRE SHIFT. PT AGILE ENOUGH TO THROW HIS LEGS OVER THE BED SIDE RAIL AND ATTEMPT TO CLIMB OVER THE SIDE RAIL. PT REQUIRES CLOSE OBSERVATION
--- NOTE | 2022-07-25 06:15 | NUR ---
BM PT HAD SMALL BM, WAS CLEANED AND EMILY CARE GIVEN
[2022-07-25 06:53] LABS: BASOPHILS % (AUTO) 0.4 % (0.0-2.0); EOSINOPHILS # (AUTO) 0.1 K/uL (0.0-0.4); HEMATOCRIT 34.1 % (36-54); HEMOGLOBIN 11.5 g/dL (14.0-18.0); LYMPHOCYTES % (AUTO) 16.9 % (20.5-51.5); MEAN CORPUSCULAR HEMOGLOBIN 31 pg (27-31); MEAN CORPUSCULAR HGB CONC 34 % (32-36); MEAN CORPUSCULAR VOLUME 91 fL (79.0-98.0); MONOCYTES # (AUTO) 0.7 K/uL (0.0-1.0); MONOCYTES % (AUTO) 11.2 % (1.7-9.3); NEUTROPHILS # (AUTO) 4.2 K/uL (1.8-7.7); NEUTROPHILS % (AUTO) 69.5 % (40.0-70.0); PLATELET COUNT (AUTO) 150 K/uL (130-430); RED BLOOD CELL COUNT(AUTO) 3.74 MIL/uL (4.2-6.2); RED CELL DISTRIBUTION WIDTH 14.8 % (9.0-15.0)
--- NOTE | 2022-07-25 07:15 | NUR ---
TRANSFER TO [facility] ROOM 132 BED A PT TRANSPORTED TO [facility] AND PLACED IN ROOM. REPORT GIVEN TO CHARGE NURSE BENITA
[2022-07-25 07:23] LABS: ANION GAP 7 (5-15); CALCIUM 8.2 mg/dL (8.4-11.0); CHLORIDE 104 mmol/L (98-107); CREATININE 0.64 mg/dL (0.55-1.30); GLUCOSE 87 mg/dL (70-99); UREA NITROGEN, BLOOD 10 mg/dL (8-21)
[2022-07-25 08:00] VITALS: BP_SYST 133
[2022-07-25] MEDS: SACUBITRIL/VALSARTAN 24 MG-26 MG 1 TABLET PO SCH ×2 (09:00→21:19)
[2022-07-25] MEDS: ATORVASTATIN 20 MG TABLET PO SCH (09:00)
[2022-07-25] MEDS: PARoxetine HCL 20 MG TABLET PO SCH (10:57)
[2022-07-25] MEDS: ISOSORBIDE MONONITRATE 30 MG TAB.ER.24H PO SCH (10:58)
[2022-07-25] MEDS: METOPROLOL SUCCINATE 50 MG TAB.SR.24H (TOPROL XL) PO SCH (11:02)
[2022-07-25] MEDS: amLODIPine BESYLATE 5 MG TABLET PO SCH (11:03)
[2022-07-25] MEDS: CLOPIDOGREL BISULFATE 75 MG TABLET PO SCH (11:04)
[2022-07-25 12:00] VITALS: BP_SYST 128
[2022-07-25 16:00] VITALS: BP_SYST 122
[2022-07-25 19:20] VITALS: BP_SYST 134
--- NOTE | 2022-07-25 19:20 | NUR ---
PM ASSESSMENT; -Pt is alert to person but confused. No s/s any pain,sob,or any acute distress noted. Dawit upper extremities bruises noted. MIR midline 2 ports both patent after flushed w/ NS, drsg cdi. Unable to discuss poc d/t cognitive limitation. Fall precaution in place. Bed alarmed, side rails x3, call light w/in reach. Cont to monitor pt.
[2022-07-25] MEDS: ALPRAZolam 0.25 MG TABLET PO SCH (21:19)
--- NOTE | 2022-07-26 00:01 | NUR ---
ROUNDS; -Pt is asleep in bed comfortably. No s/s any pain,sob,or any acute distress noted. Fall precaution in place. Bed alarmed, side rails x3, call light w/in reach. Cont to monitor pt.
[2022-07-26 00:54] VITALS: BP_SYST 139
--- NOTE | 2022-07-26 04:32 | NUR ---
INCONTINENT OF URINE -Pt is incont, attempted to get OOB, provided perineal care, changed all sheet,gown,blanket, and chux, now pt is cleaned and dry. bed alarmed side rails x3, cont to monitor pt. Addendum: 07/27/22 at 0643 by Jonas Cochran RN RN CORRECTION-ENTRY WRONG DATE
--- NOTE | 2022-07-26 06:40 | NUR ---
CLOSING NOTES; -Pt is resting in bed comfortably. No s/s any pain,sob,or any acute distress noted. Fall precaution in place. Bed alarmed, side rails x3, call light w/in reach. Pt's condition stable. Will endorse to next nurse to care.
--- NOTE | 2022-07-26 08:00 | NUR ---
NOTES 0800- PATIENT INCONTINENT, SPONGE BATH PROVIDED, CONFUSED DUE TO DEMENTIA, FED PATIENT THIS AM. 1000- RISK FOR FALL,BED ON ALARM, PATIENT CLOSED TO THE STATION. 1230 - REPORT GIVEN TO SNAKET FOR CONTINUATION OF CARE.
[2022-07-26 09:24] VITALS: BP_SYST 141
[2022-07-26] MEDS: SACUBITRIL/VALSARTAN 24 MG-26 MG 1 TABLET PO SCH ×2 (09:40→21:29)
[2022-07-26] MEDS: CLOPIDOGREL BISULFATE 75 MG TABLET PO SCH (09:41)
[2022-07-26] MEDS: ALPRAZolam 0.25 MG TABLET PO SCH ×2 (09:41→21:29)
[2022-07-26] MEDS: METOPROLOL SUCCINATE 50 MG TAB.SR.24H (TOPROL XL) PO SCH (09:41)
[2022-07-26] MEDS: amLODIPine BESYLATE 5 MG TABLET PO SCH (09:42)
[2022-07-26] MEDS: PARoxetine HCL 20 MG TABLET PO SCH (09:44)
[2022-07-26] MEDS: ATORVASTATIN 20 MG TABLET PO SCH (09:45)
[2022-07-26] MEDS: ISOSORBIDE MONONITRATE 30 MG TAB.ER.24H PO SCH (09:45)
[2022-07-26 12:55] VITALS: BP_SYST 127
[2022-07-26 16:40] VITALS: BP_SYST 134
[2022-07-26 19:45] VITALS: BP_SYST 128
--- NOTE | 2022-07-26 21:35 | NUR ---
NOTES; -Found jeans pants, t-shirt, socks,flannel shirt, and wrist watch from ICU unit. There was no glasses in the bag.
--- NOTE | 2022-07-26 23:11 | NUR ---
INCONTINENT OF URINE -Pt is incont, attempted to get OOB, provided perineal care, changed all sheet,gown,blanket, and chux, now pt is cleaned and dry. bed alarmed side rails x3, cont to monitor pt.
--- NOTE | 2022-07-27 00:26 | NUR ---
ROUNDS; -Pt is confused, attempted to climb OOB, offered urinal but pt is still confused and won't follow direction. Placed urinal and encouraged pt to pee in a urinal. Pt is wet already, changed pt and provided perineal care. Now pt is cleaned and dry. bed alarmed, side rails x3. cont to monitor pt.
[2022-07-27 01:12] VITALS: BP_SYST 123
--- NOTE | 2022-07-27 06:39 | NUR ---
CLOSING NOTES; -Pt is asleep in bed comfortably. No s/s any pain,sob,or any acute distress noted. Fall precaution in place. Bed alarmed, side rails x3, call light w/in reach. Will endorse to next nurse to cont care.
--- NOTE | 2022-07-27 07:00 | NUR ---
Report received from shift mgr RN for continuity of care. Patient in stable condition.
[2022-07-27 08:00] VITALS: BP_SYST 103
[2022-07-27] MEDS: SACUBITRIL/VALSARTAN 24 MG-26 MG 1 TABLET PO SCH ×2 (08:40→21:16)
[2022-07-27] MEDS: ISOSORBIDE MONONITRATE 30 MG TAB.ER.24H PO SCH (08:42)
[2022-07-27] MEDS: ALPRAZolam 0.25 MG TABLET PO SCH ×2 (08:42→21:16)
[2022-07-27] MEDS: ATORVASTATIN 20 MG TABLET PO SCH (08:43)
[2022-07-27] MEDS: amLODIPine BESYLATE 5 MG TABLET PO SCH (08:43)
[2022-07-27] MEDS: PARoxetine HCL 20 MG TABLET PO SCH (08:43)
[2022-07-27] MEDS: METOPROLOL SUCCINATE 50 MG TAB.SR.24H (TOPROL XL) PO SCH (08:44)
[2022-07-27] MEDS: CLOPIDOGREL BISULFATE 75 MG TABLET PO SCH (08:52)
--- NOTE | 2022-07-27 11:24 | NUR ---
Checked with SPARKLE Aldana for patient concerning reading.
--- NOTE | 2022-07-27 11:40 | NUR ---
Patient's , Harleen Canales, claiming that the patient had "hiking boots, reading glasses" in the patient's belongings. She said "they are really expensive." Checked with ICU, ER, and security regarding patient belongings.
--- NOTE | 2022-07-27 14:04 | NUR ---
Nutrition F/U Admitting Diagnosis: Cardiac Arrythmia Reviewed Pertinent Medical/Surgical Hx: Medical Record, RN Medical History Comment: Per EMR: 86y male with PMHx CAD,CABG, HLD, anxiety, osteoporosis, depression, mild dementia who presented to [facility] c/o increased weakness and experienced a choking episode. Per MD, patient noted with mild PEM: Low albumin is not a nutritional indicator of protein-energy malnutrition, however pt does qualify for non-severe mild/moderate malnutrition in the context of chronic illness (dementia). Per speech therapy note: swallow evaluation completed 07/18, recommended Puree diet with Thin Liquids, 1:1 feeding assistance and full aspiration precautions. Per previous RD note: NFPE completed - Mild fat loss orbital, cheek, tricep areas; Mild muscle wasting scientologist, clavicle, and shoulder areas. 07/24: pt is increasingly confused/ agitated and trying to get out of bed and leave. 07/25: Pt cleared for D/C from release of information clerk. Possible D/C to SNF tomorrow Subjective Information: RD rounded to pt room and pt was sleeping. RD s/w RN about pt condition. RN said that pt is a feeder but is eating pretty well and attested that pt is getting ONS TID. Average PO intake is 64% x 9 meals per EMR review. Last documented BM was 07/24. RN says pt is confused but no other nutritional issues at the moment. Current Diet Order/Nutrition Support; CCHO, Puree x 9 days Patient/Significant Other: Unable To Verbalize Education Provided: Not Indicated NEW Pertinent Medications: Entresto, Toprol, Apresoline, Lipitor NEW Pertinent Labs (07/25): K 3.5 WNL, BG 87 WNL, Ca 8.2 L, Hgba1c 5.6 WNL, Trop 209*H - improving Anthropotmetrics: Height: 5'10" Weight: 174#/78.9kg *stable since 07/17 Body Mass Index: 24.96 kg/m2 %IBW: 105 [place]/Adjusted Body Weight: 166#/75kg Weight Status: Appropriate Gastrointestinal Symptoms: None Last BM: Jul 24, 2022 Difficulty With: Swallowing Food Allergies: Unable to assess Usual Diet At Home: Unable to assess Skin Integrity Comment: Malik Score 14: ecchymosis documented on L upper arm, lower abdomen, and R arm -- wound eval complete 07/22; Edema: BUE nonpitting per EMR 07/24 Current % PO: Fair (avg of 64% x 9 meals) Estimated Energy Expenditure (kcals/day) 3146-3660 (25-30 kcal/kg for GERIAT status, mild PEM) Estimated Protein Required (g/day) 80-95 (1-1.2 g/kg for GERIAT status, mild PEM) Estimated Fluid Required (l/day) 1.5 (1500mL fluid restriction per MD) Problem/Etiology/Signs/Symptoms * Moderate malnutrition r/t dementia, inability to feed self a/e/b mild muscle wasting, mild fat loss, mild edema, and PO intake <50% x 5 days (Ongoing) Expected Outcomes/Goals PO intake provides >85% estimated nutritional needs, weight maintenance/skin integrity, nutrition-related labs WNL, normal GI function w/BM q1-3 days Dietitian Recommendations * Continue CCHO, Puree diet * Encourage good PO intake, reduce distractions during meals High Risk: F/U in 2-3days GS, MPH, RD
--- NOTE | 2022-07-27 14:08 | NUR ---
Dietitian Recommendations * Continue CCHO, Puree diet * Encourage good PO intake, reduce distractions during meals GS, MPH, RD Please refer to RD F/U for further details
--- NOTE | 2022-07-27 19:36 | NUR ---
Report given to shift mgr RN for continuity of care. Patient in stable condition.
[2022-07-27 20:00] VITALS: BP_SYST 138
[2022-07-27 23:04] VITALS: BP_SYST 134
[2022-07-28] VITALS: BP_SYST 128
[2022-07-28 04:00] VITALS: BP_SYST 128
--- NOTE | 2022-07-28 07:20 | NUR ---
OPENING NOTE Patient laying in bed at this time. He is awake, but is only alert to his name. He denies any pain or discomfort at this time. Call light within reach, all safety precautions observed. Midline site is clean, dry, and intact at this time.
[2022-07-28 08:17] VITALS: BP_SYST 116
[2022-07-28] MEDS: CLOPIDOGREL BISULFATE 75 MG TABLET PO SCH (08:30)
[2022-07-28] MEDS: ALPRAZolam 0.25 MG TABLET PO SCH ×2 (08:31→20:58)
[2022-07-28] MEDS: METOPROLOL SUCCINATE 50 MG TAB.SR.24H (TOPROL XL) PO SCH (08:31)
[2022-07-28] MEDS: amLODIPine BESYLATE 5 MG TABLET PO SCH (08:32)
[2022-07-28] MEDS: ISOSORBIDE MONONITRATE 30 MG TAB.ER.24H PO SCH (08:32)
[2022-07-28] MEDS: ATORVASTATIN 20 MG TABLET PO SCH (08:33)
[2022-07-28] MEDS: PARoxetine HCL 20 MG TABLET PO SCH (08:33)
[2022-07-28] MEDS: SACUBITRIL/VALSARTAN 24 MG-26 MG 1 TABLET PO SCH ×2 (08:35→20:57)
--- NOTE | 2022-07-28 10:45 | NUR ---
FAMILY CALLED Son Jeancarlos called asking about patient's discharge and status of life vest.
--- NOTE | 2022-07-28 11:30 | NUR ---
Discharge Planning:" BRADLEY faxed pt referral to [facility]#[phone] F#[phone] for life vest. Addendum: 07/28/22 at 1659 by Margy ADAMS BRADLEY followed up with Say Blackwell [phone] F#[phone] will follow up on life vest and come to see pt tomorrow. [facility] [phone] accepting patient. BRADLEY made CM aware.
[2022-07-28 12:49] VITALS: BP_SYST 122
--- NOTE | 2022-07-28 14:31 | NUR ---
FAMILY AT BEDSIDE Son Jeancarlos at bedside. He is asking about information about billing and about patient's pending discharge and life vest. .
[2022-07-28 16:55] VITALS: BP_SYST 105
--- NOTE | 2022-07-28 18:44 | NUR ---
CLOSING NOTE Patient laying in bed. Eyes open. Patient is still confused at this time. He does not show any s/s of pain or discomfort. Midline site is patent, clean, dry, and intact. Site is covered wrapping and a sock at this time. Call light is within reach. All safety precautions observed.
[2022-07-28 19:45] VITALS: BP_SYST 123
[2022-07-29] VITALS: BP_SYST 108
[2022-07-29 04:00] VITALS: BP_SYST 110
--- NOTE | 2022-07-29 07:20 | NUR ---
OPENING NOTE Received report from shift production supervisor RN. Upon entering room, patient laying in bed, eyes closed. No s/s of pain or discomfort. Call light within reach. All safety precautions observed.
[2022-07-29 08:00] VITALS: BP_SYST 94
[2022-07-29] MEDS: ISOSORBIDE MONONITRATE 30 MG TAB.ER.24H PO SCH (09:03)
[2022-07-29] MEDS: CLOPIDOGREL BISULFATE 75 MG TABLET PO SCH (09:04)
[2022-07-29] MEDS: METOPROLOL SUCCINATE 50 MG TAB.SR.24H (TOPROL XL) PO SCH (09:04)
[2022-07-29] MEDS: amLODIPine BESYLATE 5 MG TABLET PO SCH (09:05)
[2022-07-29] MEDS: PARoxetine HCL 20 MG TABLET PO SCH (09:05)
[2022-07-29] MEDS: ATORVASTATIN 20 MG TABLET PO SCH (09:05)
[2022-07-29] MEDS: ALPRAZolam 0.25 MG TABLET PO SCH ×2 (09:06→23:47)
[2022-07-29] MEDS: SACUBITRIL/VALSARTAN 24 MG-26 MG 1 TABLET PO SCH ×2 (09:12→23:47)
[2022-07-29 11:00] VITALS: BP_SYST 105
--- NOTE | 2022-07-29 11:00 | NUR ---
LIFE VEST UPDATE Life vest arrived to unit via manufacturing printing sales representative delivery. NIKKO Palafox signed medical order. Pewter Caster stated that a fitter will come to unit to fit patient once it has been approved by patient's insurance. Will pass on to family.
--- NOTE | 2022-07-29 11:50 | NUR ---
FAMILY AT BEDSIDE Daughter and at bedside. NIKKO Palafox at bedside to speak to family regarding life vest.
[2022-07-29 11:54] LABS: ANION GAP 6 (5-15); CALCIUM 8.2 mg/dL (8.4-11.0); CHLORIDE 103 mmol/L (98-107); CREATININE 0.95 mg/dL (0.55-1.30); GLUCOSE 107 mg/dL (70-99); UREA NITROGEN, BLOOD 15 mg/dL (8-21)
[2022-07-29 12:00] LABS: ALANINE AMINOTRANSFERASE 41 U/L (12-78); ALBUMIN 2.8 g/dL (3.4-4.8); ASPARTATE AMINOTRANSFERASE 20 U/L (10-37)
[2022-07-29 12:03] LABS: BASOPHILS % (AUTO) 0.6 % (0.0-2.0); EOSINOPHILS # (AUTO) 0.1 K/uL (0.0-0.4); EOSINOPHILS % (AUTO) 1.7 % (0.0-4.0); HEMATOCRIT 39.8 % (36-54); HEMOGLOBIN 13.3 g/dL (14.0-18.0); LYMPHOCYTES # (AUTO) 1.2 K/uL (1.0-5.5); LYMPHOCYTES % (AUTO) 20.9 % (20.5-51.5); MEAN CORPUSCULAR HEMOGLOBIN 30 pg (27-31); MEAN CORPUSCULAR HGB CONC 33 % (32-36); MEAN CORPUSCULAR VOLUME 91 fL (79.0-98.0); MONOCYTES # (AUTO) 0.9 K/uL (0.0-1.0); MONOCYTES % (AUTO) 15.5 % (1.7-9.3); NEUTROPHILS # (AUTO) 3.7 K/uL (1.8-7.7); NEUTROPHILS % (AUTO) 61.3 % (40.0-70.0); PLATELET COUNT (AUTO) 237 K/uL (130-430); RED BLOOD CELL COUNT(AUTO) 4.39 MIL/uL (4.2-6.2); RED CELL DISTRIBUTION WIDTH 14.9 % (9.0-15.0)
--- NOTE | 2022-07-29 15:42 | NUR ---
DCP followed up with Say at [facility] [phone] F#[phone] Say came is barbara pt and communicated with Dr Anahi Damon. Per Say [phone]. DCP to follow up.
[2022-07-29 17:37] VITALS: BP_SYST 99
--- NOTE | 2022-07-29 19:01 | NUR ---
CLOSING NOTE Patient laying in bed at this time. Eyes open. No s/s of pain or discomfort. Midline site clean, dry, and intact. Call light within reach. All safety precautions observed.
[2022-07-29 20:51] VITALS: BP_SYST 118
[2022-07-30 00:05] VITALS: BP_SYST 111
--- NOTE | 2022-07-30 07:16 | NUR ---
CLOSING Patient stable through night, no distress noted. AOx1, to self only. Gown and linens changed, incontinence care provided. Safety precautions in place.
--- NOTE | 2022-07-30 08:01 | NUR ---
PHYSICAL THERAPY CO-SIGN The Physical Therapy Progress Notes documented by Community Action Worker have been reviewed. Reviewed/Co-Signed by: Brannon Dunne Documentation Done by: VANESSA TRIPLETT PTA Addendum: 07/30/22 at 0801 by Brannon Dunne PT Amended: Links added.
[2022-07-30 08:20] VITALS: BP_SYST 116
[2022-07-30] MEDS: ATORVASTATIN 20 MG TABLET PO SCH (09:50)
[2022-07-30] MEDS: ALPRAZolam 0.25 MG TABLET PO SCH ×2 (09:51→21:00)
[2022-07-30] MEDS: PARoxetine HCL 20 MG TABLET PO SCH (09:52)
[2022-07-30] MEDS: ISOSORBIDE MONONITRATE 30 MG TAB.ER.24H PO SCH (09:53)
[2022-07-30] MEDS: amLODIPine BESYLATE 5 MG TABLET PO SCH (09:53)
[2022-07-30] MEDS: CLOPIDOGREL BISULFATE 75 MG TABLET PO SCH (09:54)
[2022-07-30] MEDS: METOPROLOL SUCCINATE 50 MG TAB.SR.24H (TOPROL XL) PO SCH (09:54)
[2022-07-30] MEDS: SACUBITRIL/VALSARTAN 24 MG-26 MG 1 TABLET PO SCH ×2 (09:56→21:00)
--- NOTE | 2022-07-30 10:08 | NUR ---
PT WALKED WITH P.T. , PER MORIAH CARRASCO PT REFUSED TO EAT BUT FINISHED HIS ENSURE. PT ABLE TO TAKE HIS MEDS WHOLE.
[2022-07-30 11:37] VITALS: BP_SYST 125
--- NOTE | 2022-07-30 15:54 | NUR ---
CHIEF INVESTMENT OFFICER HERE AND TALKING TO [employer] MGR.
[2022-07-30 15:57] VITALS: BP_SYST 111
--- NOTE | 2022-07-30 17:06 | NUR ---
RAINE FINN SAID PT IS NOT GOING TONIGHT, LATER ON THE [employer] LIFEVEST REP TOLD ME THAT SHE WAS SUPPOSE TO SEE PT'S TO SIGN THE PAPER RE FINANCIAL RESPONSIBILITY BUT THEN LATER ON THE DAUGHTER SAID DOES NOT WANT THE LIFE VEST AND SHE WILL CALL PT'S AIRLINE LOUNGE RECEPTIONIST. IT IS NOT CLEAR WETHER THE PT WILL GET THE LIFE VEST AND WHO WILL SET IT UP FOR THE PT OF THIS TIME.
--- NOTE | 2022-07-30 19:28 | NUR ---
PT HAS BEEN STABLE THE WHOLE SHIFT, PT ATTEMPTED TO GET OUT OF BED 2X TODAY BUT NO FALL.S , PT ASSISTED BACK TO BED. PT HAS POOR ORAL INTAKE EVEN WITH ENCOURAGEMENT AND ASSISTANCE.
[2022-07-30 20:15] VITALS: BP_SYST 130
[2022-07-30 22:28] VITALS: BP_SYST 98
[2022-07-31] VITALS (20 sets, daily range): BP systolic 80–125
--- NOTE | 2022-07-31 03:05 | NUR ---
HR sustaining in 140s. BP 125/78, 97% on room air. Paged Dr. Bindu Damon.
--- NOTE | 2022-07-31 03:33 | NUR ---
DR. Bindu SALCEDO Informed Dr. Salcedo that patient's heart rate is sustaining in 140s and 150s, up to 160. Received order for Coreg 6.25 mg bid first dose now. Dr. Salcedo stated to call him if the HR is still elevated two hours after Coreg.
[2022-07-31] MEDS: CARVEDILOL 6.25 MG TABLET (COREG) PO SCH ×3 (03:40→19:30)
[2022-07-31] MEDS ORDERED: dilTIAZem HCL IVP 5 MG/ML VIAL IVP ONE (06:00)
[2022-07-31] MEDS ORDERED: dilTIAZem HCL IVP 5 MG/ML VIAL ONE (06:21)
[2022-07-31] MEDS ORDERED: NS 500 ML IV ONE (06:45)
[2022-07-31] MEDS ORDERED: ADENOSINE 6MG/2ML VIAL IVP ONE ×2 (06:45)
[2022-07-31] MEDS ORDERED: ADENOSINE 6MG/2ML VIAL ONE (06:54)
[2022-07-31] MEDS ORDERED: ALBUMIN HUMAN 25% 100 ML IV ONE (07:15)
--- NOTE | 2022-07-31 07:40 | NUR ---
PT WAS CARDIOVERTED BY Sandra VILLALPANDO. HR WENT DOWN TO THE 80S. WILL CONT TO MONITOR.
--- NOTE | 2022-07-31 07:50 | NUR ---
DR RAMSAY WAS HERE. SPOKE WITH PT'S DAUGHTER. SAID IF FAMILY DOES NOT WANT THE LIFE BEST. PT CAN BE TRANSFERRED TO SNF.
--- NOTE | 2022-07-31 08:00 | NUR ---
PHYSICAL THERAPY CO-SIGN The Physical Therapy Progress Notes documented by Diagnostic Sales Specialist have been reviewed. Reviewed/Co-Signed by: Brannon Dunne Documentation Done by: MARSHA MEAD PTA Addendum: 07/31/22 at 0800 by Brannon Dunne PT Amended: Links added.
--- NOTE | 2022-07-31 08:01 | NUR ---
HOLD PHYSICAL THERAPY TREATMENT DUE TO TRANSFER TO THE ICU. WILL NEED NEW ORDER TO RESUME TREATMENT WHEN APPROPRIATE.
--- NOTE | 2022-07-31 08:21 | NUR ---
SUMMARY - LATE ENTRY DUE TO PATIENT CARE 0540 - HR still sustaining in 140s. BP 101/44. Patient alert at baseline and able to state name. Informed Dr. Bindu Damon. Received order for cardizem IVP and EKG. 0630 - Patient's BP decreased, 76/48. IV cardizem not given. Informed Dr. Damon. Received order for adenosine and one 500mL NS bolus, followed by another 500 mL bolus if BP does not improve. 0720 - BP continued to drop, ICU nurse and charge nurse at bedside also expressed concern about adenosine with low BP. Bolus infusing. Talked to Dr. Damon again who gave order to transfer to ICU and for albumin to support BP. EKG showing wide complex tachycardia. Dr. Damon gave order to have ER physician cardiovert patient. 0740 - Patient was cardioverted as noted by day shift nurse. BP increased to SBP 117, HR 70s-80s. Albumin not given. Patient to transfer to ICU. Dr. Kent on unit and was updated on patient status.
--- NOTE | 2022-07-31 08:53 | NUR ---
PT TRANSFERRED TO ICU ROOM 127A, REPORT GIVEN TO SPARKLE HOYOS. PT'S VITALS AND ARE WNL NOW. LAST BP WAS 118/64, INFORMED PT'S DAUGHTER MARGUERITE THAT PT HAS BEEN TRANSFERRED TO ICU C/O SPARKLE HOYOS.
[2022-07-31] MEDS: ALPRAZolam 0.25 MG TABLET PO SCH ×2 (09:00→21:00)
[2022-07-31] MEDS: ISOSORBIDE MONONITRATE 30 MG TAB.ER.24H PO SCH (09:00)
[2022-07-31] MEDS: amLODIPine BESYLATE 5 MG TABLET PO SCH (09:00)
[2022-07-31] MEDS: SACUBITRIL/VALSARTAN 24 MG-26 MG 1 TABLET PO SCH ×2 (09:00→21:00)
--- NOTE | 2022-07-31 09:06 | NUR ---
late entry due to pt care 0740-pt showing wide complex tachycardia on monitor in 160ies .BP 98/48. res 18, o2 saturation 100% on 3 l oxygen.defibrillator pads applied. night rn spoke to mamta manzo. ER DR jennings here .etomidate 10 mg ivp given by [facility] chiu as ordered by er dr jennings.pt cardioverted with synchronized mode 100 j by ER . PT converted to SR 76, BP 117/51 hr 85 , res 16. pt is sleeping . res even and unlabored. not in acute distress. 0742. pt stable not in acute distress. bp 115/60, hr 75 , res 17, sleeping comfortably. ER DOCTOR at bed side. 0750- pt stable arousable to tactile stimuli. bp 101/57,hr 72 sr,res 16.99% saturation on 3 l oxygen. 0755- pt stable notin acute distress. bp107/56 ,hr73,res 16. pt arousable to verbal stimuli.moving arms.
[2022-07-31] MEDS: ATORVASTATIN 20 MG TABLET PO SCH (10:32)
[2022-07-31 10:33] LABS: ANION GAP 6 (5-15); BASOPHILS % (AUTO) 0.6 % (0.0-2.0); CALCIUM 7.8 mg/dL (8.4-11.0); CHLORIDE 104 mmol/L (98-107); CREATININE 0.83 mg/dL (0.55-1.30); EOSINOPHILS # (AUTO) 0.1 K/uL (0.0-0.4); EOSINOPHILS % (AUTO) 2.4 % (0.0-4.0); GLUCOSE 102 mg/dL (70-99); HEMOGLOBIN 13.2 g/dL (14.0-18.0); LYMPHOCYTES # (AUTO) 1.5 K/uL (1.0-5.5); MEAN CORPUSCULAR HEMOGLOBIN 30 pg (27-31); MEAN CORPUSCULAR HGB CONC 33 % (32-36); MEAN CORPUSCULAR VOLUME 92 fL (79.0-98.0); MONOCYTES % (AUTO) 17.3 % (1.7-9.3); NEUTROPHILS # (AUTO) 3.2 K/uL (1.8-7.7); NEUTROPHILS % (AUTO) 54.7 % (40.0-70.0); PHOSPHORUS 3.5 mg/dL (2.7-4.5); PLATELET COUNT (AUTO) 225 K/uL (130-430); RED BLOOD CELL COUNT(AUTO) 4.35 MIL/uL (4.2-6.2); UREA NITROGEN, BLOOD 17 mg/dL (8-21); WHITE BLOOD COUNT (AUTO) 5.8 K/uL (4.8-10.8)
[2022-07-31] MEDS: CLOPIDOGREL BISULFATE 75 MG TABLET PO SCH (10:33)
[2022-07-31] MEDS: PARoxetine HCL 20 MG TABLET PO SCH (10:33)
[2022-07-31] MEDS ORDERED: FLECAINIDE ACETATE 50 MG TABLET (TAMBOCOR) PO ONE (13:00)
--- NOTE | 2022-07-31 13:58 | NUR ---
Spoke to daughter and at bedside. They are going to contact Life Vest company-[employer] to determine if they will provide life vest for the patient. They may decide to have the patient go back to his dementia unit-[facility] without the life vest. They will get back to me with their decision.
--- NOTE | 2022-07-31 19:15 | NUR ---
PATIENTS HEAT RATE RANGING BETWEEN 120-130'S. CALLED DR. SALCEDO. PER MD YANEZ TO GIVE COREG EARLY TO HELP WITH HR.
[2022-07-31] MEDS: FLECAINIDE ACETATE 50 MG TABLET (TAMBOCOR) PO SCH (20:02)
--- NOTE | 2022-07-31 22:00 | NUR ---
PATIENTS HR HAS IMPROVED RANGING FROM 110-117. PER MD CONTINUE TO MONITOR AND NOTIFY IF HR ABOVE 130.
[2022-08-01] VITALS (14 sets, daily range): BP systolic 101–137
[2022-08-01 06:28] LABS: BASOPHILS % (AUTO) 0.5 % (0.0-2.0); EOSINOPHILS # (AUTO) 0.2 K/uL (0.0-0.4); EOSINOPHILS % (AUTO) 3.1 % (0.0-4.0); HEMATOCRIT 36.8 % (36-54); HEMOGLOBIN 12.3 g/dL (14.0-18.0); LYMPHOCYTES # (AUTO) 1.3 K/uL (1.0-5.5); LYMPHOCYTES % (AUTO) 25.8 % (20.5-51.5); MEAN CORPUSCULAR HEMOGLOBIN 30 pg (27-31); MEAN CORPUSCULAR HGB CONC 34 % (32-36); MEAN CORPUSCULAR VOLUME 91 fL (79.0-98.0); MONOCYTES % (AUTO) 19.6 % (1.7-9.3); NEUTROPHILS # (AUTO) 2.6 K/uL (1.8-7.7); PLATELET COUNT (AUTO) 234 K/uL (130-430); RED BLOOD CELL COUNT(AUTO) 4.07 MIL/uL (4.2-6.2); RED CELL DISTRIBUTION WIDTH 14.9 % (9.0-15.0); WHITE BLOOD COUNT (AUTO) 5.1 K/uL (4.8-10.8)
[2022-08-01 06:36] LABS: ANION GAP 8 (5-15); CALCIUM 8.3 mg/dL (8.4-11.0); CHLORIDE 103 mmol/L (98-107); CREATININE 0.72 mg/dL (0.55-1.30); GLUCOSE 99 mg/dL (70-99); UREA NITROGEN, BLOOD 13 mg/dL (8-21)
--- NOTE | 2022-08-01 08:00 | NUR ---
ethan melton operator coating furnace is in charge of this patient, pt is consistently tachycardic since last night, asymptomatic, only c/o fatigue, pt follows commands but does try to get oob, thus he has to wear restraints/pt ok restriained, fed pt some nutrition drink for breakfast with his meds/per DR RAMSAY pt is being prepared for xfer, pt cannot wear life vest due to ALOC PER FAMILY, HE DOES NOT KNOW HOW TO MANAGE IT/WILL SPEAK TO DR SALCEDO RE PT NEXT STEP CARDIOLOGY [facility]/PT IS IN ZERO DISTRESS/MW
[2022-08-01] MEDS: SACUBITRIL/VALSARTAN 24 MG-26 MG 1 TABLET PO SCH (09:00)
[2022-08-01] MEDS: PARoxetine HCL 20 MG TABLET PO SCH (09:00)
[2022-08-01] MEDS: ALPRAZolam 0.25 MG TABLET PO SCH (10:14)
[2022-08-01] MEDS: ATORVASTATIN 20 MG TABLET PO SCH (10:14)
[2022-08-01] MEDS: CLOPIDOGREL BISULFATE 75 MG TABLET PO SCH (10:14)
[2022-08-01] MEDS: FLECAINIDE ACETATE 50 MG TABLET (TAMBOCOR) PO SCH (10:14)
[2022-08-01] MEDS: amLODIPine BESYLATE 5 MG TABLET PO SCH (10:15)
[2022-08-01] MEDS: ISOSORBIDE MONONITRATE 30 MG TAB.ER.24H PO SCH (10:15)
[2022-08-01] MEDS: CARVEDILOL 6.25 MG TABLET (COREG) PO SCH (10:16)
--- NOTE | 2022-08-01 13:09 | NUR ---
Spoke w/ family at bedside- they would prefer patient DC to [facility]. Dr Kent gave the order for [facility] and the RN at the [facility] accepted the patient. An order was given for Home Health, PT and OT at [facility]. The family will transport the patient to [facility] by private vehicle, if the RN caring for the pateint determines the patient is safe to transfer from W/C to car.
--- NOTE | 2022-08-01 15:21 | NUR ---
pt discharged to [facility]-vs stable3, pt still denies chest pain, sob, pt alert, oriented to self, reoriented to time and place/pt can ambulate with assist, left hospital by wheelchair to auto/pt stood up with assist-got into car with minimal help//dc instructions given with med list, stated understanding//mw
== END 2022-08-01 15:30 | DRG 280 ==
LOC: SED 10:30 → STU 12:01 → SIC 15:58 → SMU 07-25 07:00 → STU 07-25 07:12 → SIC 07-31 07:44
PROVIDERS: ADMIT General Practice; ATTEND General Practice
PROC: 5A2204Z Restoration of Cardiac Rhythm, Single (ICD-10-PCS; principal; 2022-07-31)
DX: I49.9 Cardiac arrhythmia, unspecified (principal); I21.A1 Myocardial infarction type 2; N17.0 Acute kidney failure with tubular necrosis; E44.1 Mild protein-calorie malnutrition; I50.20 Unspecified systolic (congestive) heart failure; I27.21 Secondary pulmonary arterial hypertension; I11.0 Hypertensive heart disease with heart failure; I25.10 Atherosclerotic heart disease of native coronary artery without angina pectoris; R53.81 Other malaise; D72.829 Elevated white blood cell count, unspecified; E80.6 Other disorders of bilirubin metabolism; F03.A0 Unspecified dementia, mild, without behavioral disturbance, psychotic disturbance, mood disturbance, and anxiety; E78.5 Hyperlipidemia, unspecified; M81.0 Age-related osteoporosis without current pathological fracture; R74.01 Elevation of levels of liver transaminase levels; Z20.822 Contact with and (suspected) exposure to COVID-19; I34.0 Nonrheumatic mitral (valve) insufficiency; I36.1 Nonrheumatic tricuspid (valve) insufficiency; Z88.2 Allergy status to sulfonamides; Z79.899 Other long term (current) drug therapy; Z95.1 Presence of aortocoronary bypass graft; Z79.82 Long term (current) use of aspirin; Z68.25 Body mass index [BMI] 25.0-25.9, adult
CPT/HCPCS: 36415; 71045; 76700-TC; 80048; 80053; 81000; 82330; 83036; 83735; 83880; 84100; 84132; 84443; 84484; 85025; 85610-TC; 85730-TC; 87081; 92610-GN; 93005; 93306; 93971; 96361; 96374; 96375; 97110-GP; 97116-GP; 97530-GP; 99285; G0378; J0153; J0282; J0360; J1644; J1650; J1940; J2060; J2270; J3490; J7030; J7040; J7060